=== PATIENT | female | born 1960 | race Caucasian/White ===

== ENCOUNTER 2017-10-23 10:00 | Emergency (ER) | payer BC, MEDICAID ==
[~2017-10-23] VITALS: Ht 157.5 cm; Wt 63.5 kg
[2017-10-23 10:04] VITALS: BP_SYST 196
--- NOTE | 2017-10-23 10:10 | NUR ---
Patient triaged and placed in waiting room. VSS and patient appears in no acute distress at this time. Accompanied by FRIEND, awaiting available bed, and MD notified of need for MSE.
[2017-10-23] MEDS ORDERED: NACL 0.9% 1,000 ML IV ONE (10:44)
--- NOTE | 2017-10-23 10:47 | NUR ---
Pt placed in bed 5, report endorsed to Aron ROMERO
--- NOTE | 2017-10-23 10:55 | NUR ---
ER at bedside examining patient.
--- NOTE | 2017-10-23 11:00 | NUR ---
PT PRESENTS C/O HTN AND HERNANDEZ. PT REPORTS H/O HTN, PT ADMITS TO INCREASING DOSE OF HOME MED W/O BEING ADVISED BY MD.PT REMAINS HTN . PT DENIES CP OR SOB.
[2017-10-23 11:07] LABS: BASOPHILS % (AUTO) 0.4 % (0.0-2.0); EOSINOPHILS # (AUTO) 0.2 K/uL (0.0-0.4); EOSINOPHILS % (AUTO) 1.8 % (0.0-4.0); HEMATOCRIT 45.9 % (36-48); HEMOGLOBIN 14.9 g/dL (12.0-16.0); LYMPHOCYTES # (AUTO) 1.6 K/uL (1.0-5.5); LYMPHOCYTES % (AUTO) 19.7 % (20.5-51.5); MEAN CORPUSCULAR HEMOGLOBIN 28 pg (27-31); MEAN CORPUSCULAR HGB CONC 32 % (32-36); MEAN CORPUSCULAR VOLUME 86 fL (79.0-98.0); MONOCYTES # (AUTO) 0.4 K/uL (0.0-1.0); MONOCYTES % (AUTO) 4.3 % (1.7-9.3); NEUTROPHILS # (AUTO) 6.2 K/uL (1.8-7.7); NEUTROPHILS % (AUTO) 73.8 % (40.0-70.0); PLATELET COUNT (AUTO) 414 K/uL (130-430); RED BLOOD CELL COUNT(AUTO) 5.37 MIL/uL (4.2-6.2); RED CELL DISTRIBUTION WIDTH 12.5 % (9.0-15.0); WHITE BLOOD COUNT (AUTO) 8.4 K/uL (4.8-10.8)
[2017-10-23 11:19] LABS: CALCIUM 9.9 mg/dL (8.4-11.0); CREATININE 0.77 mg/dL (0.55-1.30); POTASSIUM 3.1 mmol/L (3.5-5.1)
[2017-10-23 11:21] LABS: INR 0.9 (0.8-1.2); PROTHROMBIN TIME 9.3 SECS (9.5-12.5)
[2017-10-23 11:23] LABS: TOTAL BILIRUBIN 0.3 mg/dL (0.0-1.0)
[2017-10-23 11:39] LABS: BILIRUBIN,URINE NEGATIVE (NEGATIVE); BLOOD, URINE TRACE (NEGATIVE); CLARITY/URINE CLEAR (CLEAR); COLOR,URINE YELLOW (YELLOW); GLUCOSE,URINE NEGATIVE (NEGATIVE); KETONES,URINE NEGATIVE (NEGATIVE); LEUKOCYTE ESTERASE ,URINE NEGATIVE (NEGATIVE); NITRITE, URINE NEGATIVE (NEGATIVE); PROTEIN URINE NEGATIVE (NEGATIVE); UROBILINOGEN,URINE 0.2 (0.2-1.0)
[2017-10-23 11:45] LABS: BACTERIA,URINE RARE /HPF (None Seen); MUCUS,URINE 1+ /LPF (None Seen); WBC,URINE 0-3 /HPF (0-3)
--- NOTE | 2017-10-23 12:00 | NUR ---
PT HAS NO ACUTE DISTRESS NOTED. BP 163/90.
[2017-10-23 12:45] VITALS: BP_SYST 163
--- NOTE | 2017-10-23 12:45 | NUR ---
Patient given written and verbal discharge instructions and verbalizes understanding. ER MD discussed with patient the results and treatment provided. Patient in stable condition. ID arm band removed. Rx of TYLENOL,ANTIVERT given. Patient educated on pain management and to follow up with PMD. Pain Scale 0. Opportunity for questions provided and answered.
== END 2017-10-23 12:45 | disposition home or self-care (01) ==
LOC: SED 10:00
DX: R42 Dizziness and giddiness (principal); M54.2 Cervicalgia; I10 Essential (primary) hypertension
CPT/HCPCS: 36415; 71045; 80053; 81000-TC; 82150-TC; 82550-TC; 83690-TC; 84484; 85025; 85610-TC; 85730-TC; 93005; 99285

== ENCOUNTER 2021-09-27 16:26 | Emergency (ER) | payer MEDICAID, SELFPAY ==
[~2021-09-27] VITALS: Ht 157.5 cm; Wt 56.7 kg
[2021-09-27 17:40] VITALS: BP_SYST 158
--- NOTE | 2021-09-27 18:19 | NUR ---
DR. PETTIT EXAMINING PT
[2021-09-27] MEDS ORDERED: FLUT16SP16 NS (18:36)
--- NOTE | 2021-09-27 18:39 | NUR ---
Patient given written and verbal discharge instructions and verbalizes understanding. ER MD discussed with patient the results and treatment provided. Patient in stable condition. ID arm band removed. Rx of FLONASE given. Patient educated on pain management and to follow up with PMD. Opportunity for questions provided and answered. Medication side effect fact sheet provided.
== END 2021-09-27 18:38 | disposition home or self-care (01) ==
LOC: SED 16:26
DX: J30.9 Allergic rhinitis, unspecified (principal); I10 Essential (primary) hypertension
CPT/HCPCS: 82962; 99283

== ENCOUNTER 2022-10-13 12:54 | Emergency (ER) | payer MEDICAID ==
[~2022-10-13] VITALS: Ht 157.5 cm; Wt 61.2 kg
[~2022-10-13 12:54] MED LIST: FLUT16SP16 NS
--- NOTE | 2022-10-13 13:05 | NUR ---
Pt brought by self, A&Ox4, pt presents to ER with R shoulder pain radiating to the arm, pt states she was kicked by a horse 5 weeks ago, denies other injuries, skin pink and warm, cap refill <3.
[2022-10-13 13:09] VITALS: BP_SYST 179
--- NOTE | 2022-10-13 13:30 | NUR ---
Dr Brice evaluating patient in the triage room
--- NOTE | 2022-10-13 14:56 | NUR ---
Patient given written and verbal discharge instructions and verbalizes understanding. ER MD discussed with patient the results and treatment provided. Patient in stable condition. ID arm band removed. No Rx given. Patient educated on pain management and to follow up with PMD. Pain Scale 2/10 Opportunity for questions provided and answered. Medication side effect fact sheet provided.
[2022-10-13 14:58] VITALS: BP_SYST 179
== END 2022-10-13 14:56 | disposition home or self-care (01) ==
LOC: SED 12:54
DX: S46.001A Unspecified injury of muscle(s) and tendon(s) of the rotator cuff of right shoulder, initial encounter (principal); I10 Essential (primary) hypertension; Z79.899 Other long term (current) drug therapy; W55.12XA Struck by horse, initial encounter; Y93.89 Activity, other specified; Y92.89 Other specified places as the place of occurrence of the external cause; Y99.8 Other external cause status
CPT/HCPCS: 73030; 99283

== ENCOUNTER 2024-06-10 12:27 | Emergency (ER) | payer MEDICAID ==
[~2024-06-10] VITALS: Ht 157.5 cm; Wt 54.4 kg
[2024-06-10 12:27] VITALS: BP_SYST 159; PULSE 74; RESP 18; TEMP 98.6; O2SAT 99
[2024-06-10] MEDS: DIPHTH,PERTUSS(ACELL),TET VAC 0.5 ML VIAL (Tdap) I.M. ONE (13:32)
[2024-06-10] MEDS: LIDOCAINE 1% 10 MG/ML, 20 ML MDV INJ ONE (13:32)
[2024-06-10] MEDS: BACITRACIN 1 GM OINT TP ONE (13:34)
[2024-06-10 14:00] VITALS: O2SAT 98
== END 2024-06-10 14:00 | disposition left against medical advice (07) ==
LOC: SED 12:27
DX: S01.21XA Laceration without foreign body of nose, initial encounter (principal); Z23 Encounter for immunization; I10 Essential (primary) hypertension; Z79.899 Other long term (current) drug therapy; V89.2XXA Person injured in unspecified motor-vehicle accident, traffic, initial encounter; Y93.89 Activity, other specified; Y92.89 Other specified places as the place of occurrence of the external cause; Y99.8 Other external cause status
CPT/HCPCS: 70160; 90715; 93005; 99283; J2001